=== PATIENT | female | born 1970 | race Caucasian/White ===

== ENCOUNTER → 2017-07-23 | Day surgery (SDC) | payer OTHER ==
--- NOTE | 2017-07-22 13:22 | History & Physical Pre-Op ---
General Information and HPI History of Present Illness: The patient is a 46-year-old 0 [employer] with 7 cm left simple ovarian cyst desiring excision. The cyst is 7 cm in widest dimension; CA125 is 10. Allergies/Medications Allergies: Coded Allergies: oxycodone (From PERCOCET) (NAUSEA 07/14/17) Home Med list Levothyroxine Sodium (Synthroid) 75 MCG TABLET 1 TAB PO DAILY THYROID ( Reported) Past History Medical History Endocrine: Onel's thyroiditis [employer]/Reproductive: HPV Surgical History Pertinent Surgical History: LEEP Review of Systems Review of Systems Constitutional: Reports: no symptoms. EENTM: Reports: no symptoms. Cardiovascular: Reports: no symptoms. Respiratory: Reports: no symptoms. GI: Reports: no symptoms. Genitourinary: Reports: no symptoms. Musculoskeletal: Reports: no symptoms. Skin: Reports: no symptoms. Neurological/Psychological: Reports: no symptoms. Hematologic/Endocrine: Reports: no symptoms. Immunologic/Allergic: Reports: no symptoms. All Other Systems: Reviewed and Negative Exam & Diagnostic Data Last 24 Hrs of Vital Signs/I&O Vital signs stable Physical Exam: HEENT: Normocephalic atraumatic Chest: Clear to auscultation bilaterally Cardiovascular: Normal S1, S2 Abdomen: Soft, nontender, nondistended, no mass Pelvic: Deferred to the OR Extremities: No clubbing cyanosis Assessment/Plan Assessment/Plan: Simple 7 cm left ovarian cyst Plan: Laparoscopic excision of cyst As Ranked By This Provider Problem List: 1. Ovarian cyst
[~2017-07-23] VITALS: Ht 167.6 cm; Wt 59.0 kg
[~2017-07-23] MED LIST: AUGMENTIN 875-1 EACH PO; COLACE100 M1 PO; SYNTHROID75 MCG PO
--- NOTE | 2017-07-28 17:23 | Operative Report ---
Operative/Inv Procedure Report Surgery Date: 07/23/17 Name of Procedure: Laparoscopic excision of left ovarian cyst Pre-Operative Diagnosis: Left ovarian cyst Post-Operative Diagnosis: Same Estimated Blood Loss: scant Surgeon/Tubing Drier: Je Aguila MD Anesthesia: general endotracheal tube Operative/Procedure Note Note: The patient was brought to the operating room placed on the OR table in the dorsal supine position. She was given adequate general anesthesia and successfully intubated. She was repositioned into a modified dorsal lithotomy and prepped and draped in usual sterile fashion. A weighted speculum was inserted into the vagina with the help of a Jessica retractor E single-toothed tenaculum was attached to the anterior lip of the cervix. This acorn cannula was inserted to the cervical os and attached to the tenaculum. A Rhodes catheter was then placed into the bladder and drained clear yellow urine. Surgeon's gloves were changed and the abdomen was directed. An infraumbilical skin incision made with the scalpel and a Veress needle was placed into the abdominal cavity. The abdomen was insufflated with CO2 gas under high flow and low pressure until an adequate pneumoperitoneum had been achieved. At this point the Veress needle was removed and replaced with a 5 mm disposable trocar. Through the trocar sleeve the camera was placed and revealed good anatomic location and hemostasis. The patient was placed into discrete deep Trendelenburg position. The suprapubic stab incision was made with the scalpel and a 5 mm disposable trocar was inserted under direct visualization. Through this sleeve a blunt probe was placed to manipulate the pelvic organs. The right ovary and fallopian tubes appeared normal. The uterus was normal size and shape. The left ovary had a cyst proximally 7 cm in size. The fallopian tube was normal. Through the suprapubic sleeve the aspirator was placed and the cyst was aspirated of approximately 80 mL of clear fluid. This a third port was placed in the left lower quadrant under direct visualization through this port the Bovie was placed to open the wall of the ovarian cyst. Through the lower port the ovary was grasped and held on tension as the Bovie opened the whole. The cyst fluid was drained. Hemostasis was verified with the Bovie. At this point the pelvis was copiously irrigated with warm saline fluid and the surgical sites were hemostatic. CO2 gas was allowed to escape the abdomen and the incision sites were closed with 4-0 Biosyn interrupted interrupted fashion. The vaginal instruments removed patient was awakened and sent to recovery in good condition. All needle, sponge, and instrument counts were correct at the end of the procedure 2.
== END ==
LOC: STS 03:58
DX: N83.202 Unspecified ovarian cyst, left side (principal); E06.3 Autoimmune thyroiditis
CPT/HCPCS: 81025; 88305; C9399; J0131; J2250